=== PATIENT | female | born 1960 | race African-American/Black ===

== ENCOUNTER 2016-11-23 15:09 | Emergency (ER) | payer OTHER ==
[~2016-11-23] VITALS: Ht 170.2 cm; Wt 108.9 kg
[~2016-11-23 15:09] MED LIST: ACET-1467 PO; FLUC200T PO; FURO-151 PO; POTA25TA13 PO
--- NOTE | 2016-11-23 15:42 | NUR ---
pt says that has horrible veins and is asking if the meds can be given im in stead of iv. notified
[2016-11-23] MEDS ORDERED: IV NS 1000 ML 1,000 ML IV ONE (15:45)
[2016-11-23] MEDS ORDERED: MORPHINE SULFATE 4 MG/1 ML DISP.SYRIN IM ONE (15:45)
[2016-11-23] MEDS ORDERED: ONDANSETRON ODT 4 MG TAB.RAPDIS SL ONE ×2 (15:45→17:00)
[2016-11-23] MEDS ORDERED: methylPREDNISolone SOD SUCC 40 MG/ML VIAL IM ONE (15:45)
[2016-11-23] MEDS ORDERED: MORPHINE SULFATE 2 MG/1 ML DISP.SYRIN IV ONE (15:45)
[2016-11-23] MEDS ORDERED: methylPREDNISolone SOD SUCC 125 MG/2 ML VIAL IV ONE (15:45)
[2016-11-23] MEDS ORDERED: diphenhydrAMINE 50 MG/1 ML VIAL IV ONE (15:45)
[2016-11-23] MEDS ORDERED: diphenhydrAMINE 50 MG/1 ML VIAL IM ONE (15:45)
[2016-11-23] MEDS ORDERED: ONDANSETRON IV *ER 4 MG/2 ML VIAL IV ONE (15:45)
[2016-11-23] MEDS ORDERED: diphenhydrAMINE 50 MG CAPSULE ONE (16:01)
[2016-11-23] MEDS ORDERED: methylPREDNISolone SOD SUCC 125 MG/2 ML VIAL ONE (16:01)
[2016-11-23] MEDS ORDERED: MORPHINE SULFATE 4 MG/1 ML DISP.SYRIN ONE (16:01)
[2016-11-23] MEDS ORDERED: ONDANSETRON ODT 4 MG TAB.RAPDIS ONE ×2 (16:01→17:07)
[2016-11-23] MEDS ORDERED: diphenhydrAMINE 50 MG/1 ML VIAL ONE (16:02)
[2016-11-23] MEDS ORDERED: HYDROMORPHONE 1 MG/1 ML DISP.SYRIN IM ONE (17:00)
[2016-11-23] MEDS ORDERED: HYDROMORPHONE 2 MG/1 ML DISP.SYRIN ONE (17:08)
[2016-11-23 18:05] VITALS: BP 140/83
--- NOTE | 2016-11-23 18:05 | NUR ---
Patient discharged to home in stable conditon. Written and verbal after care instructions given. Patient verbalizes understanding of instructions. Stressed follow up or return to ER for worsening s/s.
== END 2016-11-23 18:06 | disposition home or self-care (01) ==
LOC: ER 15:10
DX: G43.909 Migraine, unspecified, not intractable, without status migrainosus (principal)
CPT/HCPCS: A4663; J1170; J1200; J2270; J2930; J7030; Q0162; Q0163